=== PATIENT | female | born 2000 | race African-American/Black ===

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

== ENCOUNTER 2020-05-18 15:15 | Emergency (ER) | payer BC ==
[~2020-05-18] VITALS: Ht 165.1 cm; Wt 64.5 kg
[~2020-05-18 15:15] MED LIST changes: +FER325T PO; -FERR325T29 PO; +HYDR-3686 PO; -QUET300T19 PO
[2020-05-18 17:03] LABS: BASOPHILS % (AUTO) 0.2 % (0-1); EOSINOPHILS % (AUTO) 0.4 % (0-6); HEMATOCRIT 46.7 % (35.0-45.0); LYMPHOCYTES # (AUTO) 1.4 X10'3 (1.1-4.8); LYMPHOCYTES % (AUTO) 13.6 % (21-51); MEAN CORPUSCULAR HEMOGLOBIN 31.2 PG (27.0-31.0); MEAN CORPUSCULAR HGB CONC 34.2 g/dL (33.0-36.5); MEAN CORPUSCULAR VOLUME 91.3 FL (78-98); MEAN PLATELET VOLUME 9.7 FL (7.4-10.4); MONOCYTES # (AUTO) 0.7 X10'3 (0-0.9); MONOCYTES % (AUTO) 7.2 % (2-12); NEUTROPHILS # (AUTO) 8.1 X10'3 (1.8-7.7); NEUTROPHILS % (AUTO) 78.6 % (42-75); PLATELET COUNT 189 X10'3 (140-440); RED BLOOD COUNT 5.12 X10'6 (4.20-5.60); RED CELL DISTRIBUTION WIDTH 12.8 % (11.5-14.5); WHITE BLOOD COUNT 10.3 X10'3 (4.5-11.0)
[2020-05-18 17:17] LABS: CLARITY,URINE CLEAR (Clear); COLOR,URINE STRAW (Yellow); GLUCOSE, URINE NEGATIVE (Neg); KETONES,URINE NEGATIVE (Neg); LEUKOCYTE ESTERASE ,URINE NEGATIVE (Neg); NITRITES, URINE NEGATIVE (Neg); OCCULT BLOOD,URINE NEGATIVE (Neg); PH,URINE 5.5 (4.8-8.0); PROTEIN,URINE NEGATIVE (Neg); URINE HCG NEGATIVE (NEG); UROBILINOGEN,URINE 0.2 E.U/dL (0.2-1.0)
[2020-05-18 17:18] LABS: ALANINE AMINOTRANSFERASE 23 U/L (12-78); ALBUMIN 4.1 G/DL (3.4-5.0); ALBUMIN/GLOBULIN RATIO 1.2 (1.1-1.5); ALKALINE PHOSPHATASE 107 IU/L (20-180); ANION GAP 10 (8-16); ASPARTATE AMINO TRANSFERASE 36 U/L (10-37); BILIRUBIN,TOTAL 0.3 MG/DL (0.1-1.0); BLOOD UREA NITROGEN 6 MG/DL (7-18); BUN/CREATININE RATIO 7.1 (6.6-38.0); CALCIUM 9.2 MG/DL (8.5-10.1); CHLORIDE 107 MMOL/L (99-107); CREATININE 0.84 MG/DL (0.40-0.90); GLUCOSE 89 MG/DL (70-104); POTASSIUM 3.7 MMOL/L (3.5-5.1); SODIUM 141 MMOL/L (135-145); TOTAL CARBON DIOXIDE 24.5 MMOL/L (24-32); TOTAL PROTEIN 7.6 G/DL (6.4-8.2); eGFR 87 ML/MIN
[2020-05-18 17:21] LABS: UA COLLECTION TYPE CLN CATCH MIDSTREAM
[2020-05-18 17:28] LABS: ETHANOL < 0.010 GM/DL (0.0-0.010)
[2020-05-18 17:33] LABS: URINE AMPHETAMINE SCREEN NEGATIVE (Neg); URINE BARBITUATE SCREEN NEGATIVE (Neg); URINE BENZODIAZEPINES SCREEN NEGATIVE (Neg); URINE CANNABINOID SCREEN POSITIVE (Neg); URINE COCAINE SCREEN NEGATIVE (Neg); URINE METHADONE SCREEN NEGATIVE (Neg); URINE OPIATE SCREEN NEGATIVE (Neg); URINE PHENCYCLIDINE SCREEN NEGATIVE (Neg)
[2020-05-18] MEDS ORDERED: DIVA-52 PO (18:38)
[2020-05-18] MEDS ORDERED: LISD60CA PO (18:38)
[2020-05-18] MEDS ORDERED: RALO60TA13 PO (18:38)
[2020-05-18] MEDS ORDERED: OXCA300T16 PO (18:38)
[2020-05-18] MEDS ORDERED: VENL25TA48 PO (18:38)
[2020-05-18] MEDS ORDERED: CHOL50004 PO (18:41)
[2020-05-18] MEDS ORDERED: TEST5GEL2 TOP (18:41)
--- NOTE | 2020-05-18 19:49 | NUR ---
The patient was very cooperative with the evening nursing assessment. Stated that she feels she needs to be here. She admits to suicide attempt by hanging two days ago. She feels she needs to be here to "get stable" She stated that right now her mood was "pretty alright" and that she currently did not feel suicidal but stated that feels that she has been impulsively suicidal. She denies anxiety. [facility] on [facility] 5150 hold.
[2020-05-18] MEDS: oxcarbazepine 150mg tablet PO SCH (20:22)
--- NOTE | 2020-05-18 22:52 | NUR ---
The patient appears to be sleeping
--- NOTE | 2020-05-19 01:57 | NUR ---
The patient appears to be sleeping
--- NOTE | 2020-05-19 03:38 | NUR ---
The patient appears to be sleeping
--- NOTE | 2020-05-19 04:48 | NUR ---
The patient appears to be sleeping
--- NOTE | 2020-05-19 06:49 | NUR ---
Patient sleeping on right side. No distress observed. Continue to monitor.
[2020-05-19] MEDS ORDERED: lisdexamfetamine dimesylate 60mg capsule PO SCH (08:00)
[2020-05-19] MEDS: lisdexamfetamine dimesylate 10mg capsule PO SCH (08:56)
[2020-05-19] MEDS: raloxifene 60mg tablet PO SCH (08:56)
[2020-05-19] MEDS: venlafaxine XR 75mg capsule (Q24H) PO SCH (08:57)
[2020-05-19] MEDS: divalproex sodium 500mg tablet.DR PO SCH (08:58)
[2020-05-19] MEDS: vitamin D (cholecalciferol) 1,000 unit tablet PO SCH (08:58)
[2020-05-19] MEDS: oxcarbazepine 150mg tablet PO SCH ×2 (08:58→19:56)
[2020-05-19] MEDS: testosterone 5gm gel packet TD SCH (08:59)
--- NOTE | 2020-05-19 08:59 | NUR ---
Patient refused breakfast but took her medication. Patient still very depressed and won't answer RN if she is still suicidal. Patient had a serious attempt. Patient pending placement. Continue to monitor.
[2020-05-19] MEDS: lisdexamfetamine dimesylate 40mg capsule PO SCH (09:17)
--- NOTE | 2020-05-19 09:28 | NUR ---
assumed care of the patient from the primary nurse for her 15 min break. the patient was laying in bed on her right side, she appeared to be sleeping, her respirations appeared normal and she was not in any distress at this time.
--- NOTE | 2020-05-19 10:28 | NUR ---
Patient c/o nausea. Dr Balbuena ordered Zofran. Administered to patient. Continue to monitor.
[2020-05-19] MEDS ORDERED: ondansetron 4mg rapidly disintigrating tab PO PRN (11:15)
--- NOTE | 2020-05-19 13:03 | NUR ---
relieved the primary nurse for lunch, took over care of the patient. The patient was sitting on the side of the bed coloring and the patient refused to eat the lunch provided to him due to the reason that the entire staff is mis-gendering him and it makes him "physically ill to eat with this atmosphere of disrespect" , his respirations appeared normal and was not in any distress at this time.
--- NOTE | 2020-05-19 14:07 | NUR ---
RN performed Jesus Marcial Antigen test. RN spoke to patient about eating and feeling like we are disrespecting him. RN advised patient that if we accidently called him a her it is not on purpose. RN explained that he is free to be who he wants to be in [place]. Patient states it's not that she doesn't want to eat, it's that her mind won't let her eat. Continue to monitor.
--- NOTE | 2020-05-19 16:50 | NUR ---
Patient is being looked at by Rosalva Hunter and will accept her once she starts to eat. Patient as refused both her breakfast and lunch. Continue to monitor.
--- NOTE | 2020-05-20 04:37 | NUR ---
Ary, staffing and scheduling coordinator from [place] called for update and estimated time of arrival. Update given and patient care discussed.
[2020-05-20 05:26] VITALS: BP 128/83
--- NOTE | 2020-05-20 07:29 | NUR ---
pt identifys as a male named Abel. Pt is very agreeable with no anxiety or distress noted. pt very verbal about thoughts of suicide and being left alone can "get lost in my thought and makes me suicidal", states he has one friend who he is able to speak to through snapchat only. pt sitting on side of bed coloring, no distress noted.
[2020-05-20] MEDS: lisdexamfetamine dimesylate 10mg capsule PO SCH (08:00)
[2020-05-20] MEDS: raloxifene 60mg tablet PO SCH (08:00)
[2020-05-20] MEDS: lisdexamfetamine dimesylate 40mg capsule PO SCH (08:00)
[2020-05-20] MEDS: divalproex sodium 500mg tablet.DR PO SCH (08:00)
[2020-05-20] MEDS: venlafaxine XR 75mg capsule (Q24H) PO SCH (08:01)
[2020-05-20] MEDS: testosterone 5gm gel packet TD SCH (08:01)
[2020-05-20] MEDS: oxcarbazepine 150mg tablet PO SCH (08:02)
[2020-05-20] MEDS: vitamin D (cholecalciferol) 1,000 unit tablet PO SCH (08:34)
--- NOTE | 2020-05-20 10:04 | NUR ---
assumed care of the patient from the primary nurse for a break. The patient was sitting on the side of the bed conversing with the patient in the next bed. The patient's respirations appeared normal and was not in any distress at this time.
--- NOTE | 2020-05-20 10:39 | NUR ---
called from [facility] stated pt was accepted to [facility] at 0940. stated awaiting call for nurse to nurse report and [facility] stated starting to plan pickup now.
--- NOTE | 2020-05-20 11:56 | NUR ---
home meds picked up and given back to pt, pt wallet also picked up from safe and given back to pt. pt ambulated out of ed with security assist. no distress noted.
--- NOTE | 2020-05-20 13:20 | NUR ---
report given to lucia aguillon at [facility]. pt already left [facility] and in route. rn aware.
== END 2020-05-20 11:56 ==
LOC: ER 15:15
DX: T14.91XA Suicide attempt, initial encounter (principal); F31.9 Bipolar disorder, unspecified; F41.9 Anxiety disorder, unspecified; Z20.822 Contact with and (suspected) exposure to COVID-19; Z88.0 Allergy status to penicillin; Z91.011 Allergy to milk products; Z79.899 Other long term (current) drug therapy; X83.8XXA Intentional self-harm by other specified means, initial encounter; Y93.89 Activity, other specified; Y92.89 Other specified places as the place of occurrence of the external cause; Y99.8 Other external cause status
CPT/HCPCS: 36415; 80053; 80305; 80320; 81003; 81025; 84443; 85025; 87426; 99285

== ENCOUNTER 2021-07-07 18:13 | Emergency (ER) | payer BC ==
[~2021-07-07] VITALS: Ht 165.1 cm; Wt 59.1 kg
[~2021-07-07 18:13] MED LIST changes: -CHOL10002 PO; +CHOL50004 PO; +DIVA-52 PO; -FER325T PO; -HYDR-3686 PO; +LISD60CA PO; -LITH150C8 PO; +OXCA300T16 PO; -QUET100T33 PO; +RALO60TA13 PO; +TEST5GEL2 TOP; +VENL25TA48 PO
[2021-07-07 19:27] LABS: BASOPHILS % (AUTO) 0.4 % (0-1); EOSINOPHILS # (AUTO) 0.2 X10'3 (0-0.9); EOSINOPHILS % (AUTO) 3.7 % (0-6); HEMATOCRIT 47.4 % (35.0-45.0); LYMPHOCYTES # (AUTO) 2.4 X10'3 (1.1-4.8); LYMPHOCYTES % (AUTO) 37.7 % (21-51); MEAN CORPUSCULAR HEMOGLOBIN 31.8 PG (27.0-31.0); MEAN CORPUSCULAR HGB CONC 33.9 g/dL (33.0-36.5); MEAN CORPUSCULAR VOLUME 93.8 FL (78-98); MEAN PLATELET VOLUME 9.8 FL (7.4-10.4); MONOCYTES # (AUTO) 0.7 X10'3 (0-0.9); MONOCYTES % (AUTO) 10.7 % (2-12); NEUTROPHILS # (AUTO) 3.1 X10'3 (1.8-7.7); NEUTROPHILS % (AUTO) 47.5 % (42-75); PLATELET COUNT 254 X10'3 (140-440); RED BLOOD COUNT 5.05 X10'6 (4.20-5.60); RED CELL DISTRIBUTION WIDTH 13.7 % (11.5-14.5); WHITE BLOOD COUNT 6.5 X10'3 (4.5-11.0)
[2021-07-07 19:37] LABS: ALANINE AMINOTRANSFERASE 22 U/L (12-78); ALBUMIN 4.3 G/DL (3.4-5.0); ALBUMIN/GLOBULIN RATIO 1.2 (1.1-1.5); ALKALINE PHOSPHATASE 94 IU/L (20-180); ANION GAP 9 (8-16); ASPARTATE AMINO TRANSFERASE 23 U/L (10-37); BILIRUBIN,TOTAL 0.7 MG/DL (0.1-1.0); BLOOD UREA NITROGEN 17 MG/DL (7-18); BUN/CREATININE RATIO 18.3 (6.6-38.0); CALCIUM 9.7 MG/DL (8.5-10.1); CHLORIDE 103 MMOL/L (99-107); CREATININE 0.93 MG/DL (0.40-0.90); GLUCOSE 108 MG/DL (70-104); POTASSIUM 4.3 MMOL/L (3.5-5.1); SODIUM 138 MMOL/L (135-145); eGFR 77 ML/MIN
[2021-07-07 19:46] LABS: ETHANOL < 0.010 GM/DL (0.0-0.010)
--- NOTE | 2021-07-07 19:53 | NUR ---
PT VERBALIZED THAT HE TAKES PROPANOLOL FOR CHEST PRESSURE PER THEIR PRIMARY CARE. PA NOTIFIED AND APPROVED ORDER FOR THE MEDICATION.
[2021-07-07] MEDS ORDERED: propranolol 10mg tablet PO ONE (19:55)
--- NOTE | 2021-07-07 20:12 | NUR ---
PT'S UNCLE [employer] CALLED AND PT VERBALIZED APPROVAL TO PROVIDE HIM AN UPDATE ON HIS CONDITION. PT UNCLE IS GOING TO BE UPDATED FAMILY/PT'S MOTHER WHO HAS SPECIAL NEEDS.
[2021-07-07 20:14] LABS: URINE HCG NEGATIVE (NEG)
[2021-07-07 20:15] LABS: CLARITY,URINE CLEAR (Clear); COLOR,URINE YELLOW (Yellow); GLUCOSE, URINE NEGATIVE (Neg); KETONES,URINE TRACE mg/dl (Neg); LEUKOCYTE ESTERASE ,URINE NEGATIVE (Neg); NITRITES, URINE NEGATIVE (Neg); OCCULT BLOOD,URINE NEGATIVE (Neg); PROTEIN,URINE NEGATIVE (Neg); UROBILINOGEN,URINE 0.2 E.U/dL (0.2-1.0)
[2021-07-07 20:20] LABS: UA COLLECTION TYPE CLN CATCH MIDSTREAM
[2021-07-07 20:28] LABS: URINE AMPHETAMINE SCREEN POSITIVE (Neg); URINE BARBITUATE SCREEN NEGATIVE (Neg); URINE BENZODIAZEPINES SCREEN NEGATIVE (Neg); URINE CANNABINOID SCREEN POSITIVE (Neg); URINE COCAINE SCREEN NEGATIVE (Neg); URINE METHADONE SCREEN NEGATIVE (Neg); URINE OPIATE SCREEN NEGATIVE (Neg); URINE PHENCYCLIDINE SCREEN NEGATIVE (Neg)
--- NOTE | 2021-07-07 21:49 | NUR ---
Packet sent to [facility]
[2021-07-07] MEDS ORDERED: PROP20TA6 PO (22:52)
[2021-07-07] MEDS ORDERED: DIVA500T9 PO (22:52)
[2021-07-07] MEDS ORDERED: LISD60CA PO (22:55)
[2021-07-07] MEDS ORDERED: propranolol 10mg tablet PO PRN (23:05)
--- NOTE | 2021-07-08 00:01 | NUR ---
THe patient appears to be sleeping
--- NOTE | 2021-07-08 01:50 | NUR ---
THe patient appears to be sleeping
--- NOTE | 2021-07-08 03:11 | NUR ---
The patient appearsa to be sleeping
[2021-07-08 05:10] VITALS: BP 106/79
--- NOTE | 2021-07-08 05:33 | NUR ---
THe patient appeared to have slept well during the night
--- NOTE | 2021-07-08 07:00 | NUR ---
Received Pt in bed sleeping w/o distress.
[2021-07-08] MEDS ORDERED: divalproex sod 250mg ER (24-hour) tablet PO SCH (08:00)
[2021-07-08] MEDS ORDERED: lisdexamfetamine dimesylate 60mg capsule PO SCH (08:00)
--- NOTE | 2021-07-08 09:15 | NUR ---
Pt awake and in bed with breakfast. Pt ate 25% of breakfast. Pt AxO x4, pleasant and cooperative. Pt still voicing +SI and does not feel safe going home.
[2021-07-08] MEDS ORDERED: lisdexamfetamine dimesylate 10mg capsule PO SCH (10:49)
--- NOTE | 2021-07-08 11:30 | NUR ---
Pt moved to bed 22 with permission after talking with other Pt in bed 20 and felt "she is trying to get in my head". Pt able to laugh at jokes and carry a conversation in linear fashion. Pt in bed resting at this time.
[2021-07-08] MEDS ORDERED: OXCA150T14 PO (12:12)
[2021-07-08] MEDS ORDERED: IBUP-1984 PO (12:12)
[2021-07-08] MEDS ORDERED: VENL25TA48 PO (12:12)
--- NOTE | 2021-07-08 13:30 | NUR ---
Called [facility] and obtained all of Pt's current meds and med rec. re done and signed by . Med Rec. faxed to pharmacy.
[2021-07-08] MEDS ORDERED: VENL75CA61 PO (13:43)
[2021-07-08] MEDS ORDERED: ibuprofen tablet 400 MG TABLET PO PRN (13:45)
--- NOTE | 2021-07-08 14:46 | NUR ---
Rec'd call from [facility] and provided nurse to nurse info. [facility] called with accepting Dr. (Dr Blanco) at 1342.
--- NOTE | 2021-07-08 14:55 | NUR ---
Pt discharged to [facility] furniture mover driver to go to [facility]. Pt's belongings given to furniture mover driver after Pt changed into own clothes.
[2021-07-08] MEDS ORDERED: oxcarbazepine 150mg tablet PO SCH (20:00)
[2021-07-09] MEDS ORDERED: venlafaxine XR 75mg capsule (Q24H) PO SCH (08:00)
== END 2021-07-08 15:04 ==
LOC: ER 18:14
DX: R45.851 Suicidal ideations (principal); Z20.822 Contact with and (suspected) exposure to COVID-19; F31.9 Bipolar disorder, unspecified; F60.3 Borderline personality disorder; F84.0 Autistic disorder; F41.9 Anxiety disorder, unspecified; Z72.89 Other problems related to lifestyle; Z88.0 Allergy status to penicillin; Z91.011 Allergy to milk products; Z79.899 Other long term (current) drug therapy
CPT/HCPCS: 36415; 80053; 80305; 80320; 81003; 81025; 84443; 85025; 87635; 99285; C9803; 99284

== ENCOUNTER 2021-07-17 16:27 | Emergency (ER) | payer BC ==
[~2021-07-17] VITALS: Ht 165.1 cm; Wt 59.0 kg
[~2021-07-17 16:27] MED LIST changes: -CHOL50004 PO; -DIVA-52 PO; +DIVA500T9 PO; +IBUP-1984 PO; +OXCA150T14 PO; -OXCA300T16 PO; +PROP20TA6 PO; -RALO60TA13 PO; -TEST5GEL2 TOP; -VENL25TA48 PO; +VENL75CA61 PO
[2021-07-17] MEDS ORDERED: CHOL100025 PO (16:54)
[2021-07-17] MEDS ORDERED: TEST100V IM (16:54)
[2021-07-17] MEDS ORDERED: ONDA4TAB12 PO (17:06)
[2021-07-17] MEDS ORDERED: ondansetron 4mg rapidly disintigrating tab PO ONE (17:10)
[2021-07-17 17:25] VITALS: BP 126/84
--- NOTE | 2021-07-17 17:27 | NUR ---
Pt given and understands d/c instructions. Ambulatory with a steady gait.
== END 2021-07-17 17:25 | disposition home or self-care (01) ==
LOC: ER 16:27
DX: R07.89 Other chest pain (principal); R11.2 Nausea with vomiting, unspecified; I10 Essential (primary) hypertension; F12.90 Cannabis use, unspecified, uncomplicated; Z72.89 Other problems related to lifestyle; Z88.0 Allergy status to penicillin; Z91.011 Allergy to milk products; Z79.899 Other long term (current) drug therapy
CPT/HCPCS: 82948; 93005; 99283; 99284

== ENCOUNTER 2021-11-29 12:57 | Emergency (ER) | payer BC ==
[~2021-11-29] VITALS: Ht 165.1 cm; Wt 68.2 kg
[~2021-11-29 12:57] MED LIST changes: +CHOL100025 PO; +ONDA4TAB12 PO; +TEST100V IM; -VENL75CA61 PO
--- NOTE | 2021-11-29 13:41 | NUR ---
The patient is a 21 year old transgender female to male "Jus" brought in by [facility] after he reported he was having obsessive suicidal thoughts to overdose on prescription medications.. Reports prior psychiatric diagnosis of Bipolar, BPD, ADHD, PTSD and aspergers. He has prior SA and psychiatric hospitalizations. His current provider is the [facility]. He is prescribed medications but reports he has not taken any medications for the past 2 days. He reported that he did not feel he could be safe unless he was hosptialized. Substance abuse includes binging on ETOH and THC. He was cooperative with staff. He reports suicidal thoughts are chronic and stated that he came in because he did not feel he could keep from acting on them. He is wearing bilateral knee braces. He denies thoughts to harm others. He reports insomnia. Psychotic symptoms are denied and were not evident during the assessment. He has a history of cutting self harm behaviors and currently has superficial cuts to his left forearm. He is unemployed and lives with his mother.
[2021-11-29 14:08] LABS: URINE HCG NEGATIVE (NEG)
[2021-11-29 14:10] LABS: CLARITY,URINE CLEAR (Clear); GLUCOSE, URINE NEGATIVE (Neg); KETONES,URINE NEGATIVE (Neg); LEUKOCYTE ESTERASE ,URINE NEGATIVE (Neg); NITRITES, URINE NEGATIVE (Neg); OCCULT BLOOD,URINE NEGATIVE (Neg); PROTEIN,URINE NEGATIVE (Neg); UROBILINOGEN,URINE 0.2 E.U/dL (0.2-1.0)
[2021-11-29 14:12] LABS: COLOR,URINE STRAW (Yellow); UA COLLECTION TYPE VOIDED
[2021-11-29] MEDS ORDERED: PROP10TA10 PO (14:12)
[2021-11-29] MEDS ORDERED: LISD60CA PO (14:12)
[2021-11-29] MEDS ORDERED: OXCA150T14 PO (14:12)
[2021-11-29] MEDS ORDERED: RALOXIFENE PO (14:12)
[2021-11-29] MEDS ORDERED: DIVA-76 PO (14:12)
[2021-11-29] MEDS ORDERED: TEST200V33 IM (14:12)
[2021-11-29 14:13] LABS: BASOPHILS % (AUTO) 0.3 % (0-1); EOSINOPHILS % (AUTO) 0.3 % (0-6); HEMATOCRIT 45.4 % (35.0-45.0); HEMOGLOBIN 15.7 g/dl (12.0-16.0); LYMPHOCYTES # (AUTO) 1.9 X10'3 (1.1-4.8); LYMPHOCYTES % (AUTO) 35.5 % (21-51); MEAN CORPUSCULAR HEMOGLOBIN 31.2 PG (27.0-31.0); MEAN CORPUSCULAR HGB CONC 34.6 g/dL (33.0-36.5); MEAN CORPUSCULAR VOLUME 90.2 FL (78-98); MEAN PLATELET VOLUME 9.7 FL (7.4-10.4); MONOCYTES # (AUTO) 0.4 X10'3 (0-0.9); MONOCYTES % (AUTO) 7.4 % (2-12); NEUTROPHILS % (AUTO) 56.5 % (42-75); PLATELET COUNT 176 X10'3 (140-440); RED BLOOD COUNT 5.04 X10'6 (4.20-5.60); RED CELL DISTRIBUTION WIDTH 12.6 % (11.5-14.5); WHITE BLOOD COUNT 5.4 X10'3 (4.5-11.0)
[2021-11-29 14:14] LABS: URINE AMPHETAMINE SCREEN NEGATIVE (Neg); URINE BARBITUATE SCREEN NEGATIVE (Neg); URINE BENZODIAZEPINES SCREEN NEGATIVE (Neg); URINE CANNABINOID SCREEN POSITIVE (Neg); URINE COCAINE SCREEN NEGATIVE (Neg); URINE METHADONE SCREEN NEGATIVE (Neg); URINE OPIATE SCREEN NEGATIVE (Neg); URINE PHENCYCLIDINE SCREEN NEGATIVE (Neg)
[2021-11-29 14:29] LABS: ALANINE AMINOTRANSFERASE 20 U/L (12-78); ALBUMIN 4.2 G/DL (3.4-5.0); ALBUMIN/GLOBULIN RATIO 1.2 (1.1-1.5); ALKALINE PHOSPHATASE 80 IU/L (46-116); ANION GAP 9 (8-16); ASPARTATE AMINO TRANSFERASE 17 U/L (10-37); BILIRUBIN,TOTAL 0.5 MG/DL (0.1-1.0); BLOOD UREA NITROGEN 7 MG/DL (7-18); BUN/CREATININE RATIO 6.9 (6.6-38.0); CALCIUM 9.3 MG/DL (8.5-10.1); CHLORIDE 103 MMOL/L (99-107); CREATININE 1.01 MG/DL (0.40-0.90); GLUCOSE 103 MG/DL (70-104); POTASSIUM 3.6 MMOL/L (3.5-5.1); SODIUM 138 MMOL/L (135-145); TOTAL CARBON DIOXIDE 25.7 MMOL/L (24-32); TOTAL PROTEIN 7.7 G/DL (6.4-8.2); eGFR 69 ML/MIN
[2021-11-29 14:55] LABS: CARBAMAZEPINE (TEGRETOL) < 0.5 UG/ML (4.0-12.0); VALPROATE < 3.0 UG/ML (50-100)
[2021-11-29 14:59] LABS: ETHANOL < 0.010 GM/DL (0.0-0.010)
--- NOTE | 2021-11-29 15:21 | NUR ---
[facility] packet faxed.
[2021-11-29] MEDS ORDERED: RALO60TA13 PO (15:46)
--- NOTE | 2021-11-29 15:46 | NUR ---
Constantino with [facility] evaluated the patient. Constantino attempted to contact patient's therapist but was unable to get in contact with them. Patient will be written on a 5150 MH hold.
--- NOTE | 2021-11-29 16:20 | NUR ---
The patient appears to be sleeping
[2021-11-29] MEDS ORDERED: raloxifene 60mg tablet PO SCH (16:30)
--- NOTE | 2021-11-29 16:58 | NUR ---
Patient came to nursing station and handed the clinical writer his shoe janeth stating that he is having intrusive thoughts. Continue to monitor.
--- NOTE | 2021-11-29 17:38 | NUR ---
The patient has been placed on a 5150 hold. He is currently resting on his bed
--- NOTE | 2021-11-29 19:22 | NUR ---
PT accepted at [facility] unit [address] by at 1800 on 11/29/21.
[2021-11-29] MEDS: divalproex sodium 500mg tablet.DR PO SCH (19:51)
[2021-11-29] MEDS: oxcarbazepine 150mg tablet PO SCH (19:51)
[2021-11-29] MEDS ORDERED: propranolol 10mg tablet PO PRN (20:00)
--- NOTE | 2021-11-29 22:00 | NUR ---
Pt up to use the restroom, voided
[2021-11-29] MEDS ORDERED: acetaminophen 325mg tablet PO ONE (22:55)
--- NOTE | 2021-11-30 00:10 | NUR ---
Pt asleep RR 16
--- NOTE | 2021-11-30 01:00 | NUR ---
Pt is up to use the restroom without issue
--- NOTE | 2021-11-30 02:51 | NUR ---
PT awake coloring in bed
[2021-11-30 07:45] VITALS: BP 105/57
[2021-11-30] MEDS ORDERED: lisdexamfetamine dimesylate 60mg capsule PO SCH (08:00)
[2021-11-30] MEDS ORDERED: lisdexamfetamine dimesylate 40mg capsule PO SCH (08:47)
[2021-11-30] MEDS: divalproex sodium 500mg tablet.DR PO SCH (09:18)
[2021-11-30] MEDS: oxcarbazepine 150mg tablet PO SCH (09:18)
[2021-12-01] MEDS ORDERED: lisdexamfetamine dimesylate 10mg capsule PO SCH (08:00)
[2021-12-06] MEDS ORDERED: TESTOSTERONE CYPIONATE 200 MG/ML VIAL IM SCH (08:00)
== END 2021-11-30 09:25 ==
LOC: ER 12:57
DX: R45.851 Suicidal ideations (principal); Z20.822 Contact with and (suspected) exposure to COVID-19; F31.9 Bipolar disorder, unspecified
CPT/HCPCS: 36415; 80053; 80156; 80164; 80305; 80320; 81003; 81025; 84443; 85025; 87635; 99285; C9803